=== PATIENT | female | born 1940 | race American Indian/Alaskan Native ===

== ENCOUNTER 2018-04-13 15:11 | Emergency (ER) | payer MEDICARE ==
--- NOTE | 2018-04-13 15:23 | Emergency Department Report ---
HPI - General Time Seen by Provider: 04/13/18 15:17 - HPI HPI: Charge nurse triage The patient is a 77-year-old female presenting with a chief complaint of "seizure-like activity" and right upper extremity weakness. Per EMS they received a call for a seizure-like activity. Upon their arrival the patient was unable to move her right upper extremity or right lower extremity. Family states this began approximately 30 minutes prior to EMS arrival (EMS arrived on scene at 14:40). EMS noted that the patient at one point began shaking both arms. +5-7 seconds but remained responsive throughout the entire event. Upon arrival to the ED the patient was able to move her right lower extremity but still unable to move her right upper extremity Location: [See above] Duration: [See above] Quality: [See above] Severity: [See above] Modifying factors: [see above] Context: [see above] Mode of transportation: [not driving] ED Past Medical Hx - Past Medical History Hx Seizures: Yes Additional medical history: NAUSEA, FIBROID TUMOR - Surgical History Additional Surgical History: REMOVAL OF ONE OVERY(UNSURE OF SIDE) - Family History Family history: no significant - Social History Smoking Status: Never Smoker - Medications Home Medications: Home Medications Medication Instructions Recorded Confirmed Last Taken Type oxyCODONE /ACETAMINOPHEN [Percocet 2 tab PO Q6H PRN #14 tablet 03/31/18 Unknown Rx 5/325 mg] ED Review of Systems ROS: Stated complaint: POSS STROKE Other details as noted in HPI Neurological: weakness Physical Exam - Physical Exam Physical Exam: GENERAL: The patient is well-developed well-nourished female lying on stretcher not appearing to be in acute distress. [] HEENT: Normocephalic. Atraumatic. Extraocular motions are intact. Patient has moist mucous membranes. NECK: Supple. Trachea midline CHEST/LUNGS: Clear to auscultation. There is no respiratory distress noted. HEART/CARDIOVASCULAR: Regular. There is no tachycardia. There is no gallop rub or murmur. ABDOMEN: Abdomen is soft, nontender. Patient has normal bowel sounds. There is no abdominal distention. SKIN: There is no rash. There is no edema. There is no diaphoresis. NEURO: The patient is awake, alert, and oriented. The patient is cooperative. Cranial nerves II through XII grossly intact with the exception of slightly decreased strength in right shoulder shrug (cranial nerve XI). Patient is unable to raise right upper extremity from off of the stretcher. [employer] In[employer] Adjunct are equal bilaterally. Moves both lower extremities. Normal sensation. The patient has normal speech MUSCULOSKELETAL: There is no evidence of acute injury. ED Course - Consultations Consultation #1: 04/13/18 15:37 Tele-Neuro paged 04/13/18 16:[address] Rojas after they had a chance to evaluate the patient. States patient's presentation is completely psychogenic. Does not require admission for this presentation. Should be given outpatient referral for neurologist Consultation #2: 04/13/18 16:31 Case discussed with mental health health consultant-no inpatient criteria ED Medical Decision Making - Lab Data Result diagrams: 04/13/18 15:15 04/13/18 15:15 Laboratory Tests 04/13/18 04/13/18 04/13/18 15:15 15:15 15:15 WBC 7.1 RBC 3.92 Hgb 11.7 Hct 33.8 MCV 86 MCH 30 MCHC 35 H RDW 15.1 Plt Count 563 H Lymph % (Auto) 45.0 H Thomas % (Auto) 10.5 H Eos % (Auto) 5.5 H Baso % (Auto) 0.7 Lymph # 3.2 Thomas # 0.7 Eos # 0.4 Baso # 0.0 Seg Neutrophils % 38.3 L Seg Neutrophils # 2.7 PT 12.7 INR 0.91 APTT 33.7 Thrombin Time 16.7 Sodium 134 L Potassium 3.7 Chloride 96.9 L Carbon Dioxide 27 Anion Gap 14 BUN 10 Creatinine 0.6 L Estimated GFR > 60 BUN/Creatinine Ratio 17 Glucose 114 H Calcium 9.3 Total Creatine Kinase 74 CK-MB (CK-2) 1.3 CK-MB (CK-2) Rel Index 1.7 Troponin T < 0.010 - EKG Data -: EKG Interpreted by De EKG shows normal: sinus rhythm Rate: normal - EKG Data When compared to previous EKG there are: previous EKG unavailable Interpretation: other (no ischemic changes seen) - Radiology Data Radiology results: report reviewed (CT head), image reviewed (CT head) [facility] [address] [place] [address] Cat Scan Report Signed Patient: SVETA BARBER MR#: [id number] : 1940 Acct:[id number] Age/Sex: 77 / F ADM Date: 04/13/18 Loc: ED Attending Dr: Ordering Physician: GELY CERNA MD Date of Service: 04/13/18 Procedure(s): CT head/brain wo con Accession Number(s): [id number] cc: GELY CERNA MD CT scan of head without IV contrast: History: Neurodeficit Findings: Ventricles are normal in size and midline in location. Periventricular area of low attenuation. Moderate volume loss. No evidence of acute ischemia, hemorrhage or mass. No extra-axial fluid collection. Normal visualized sinuses and mastoid air cells. Impression: No acute intracranial abnormality. Small vessel ischemic changes. was informed of the findings at 3:30 PM on 04/13/18. 98N Transcribed By: PTP Dictated By: FRANDY CHIANG MD Electronically Authenticated By: FRANDY CHIANG MD Signed Date/Time: 04/13/181517 DD/ 13 TD/TT: 04/13/181517 - Differential Diagnosis CVA, malingering, Mani's paralysis Critical care attestation.: If time is entered above; I have spent that time in minutes in the direct care of this critically ill patient, excluding procedure time. ED Disposition Clinical Impression: Psychogenic paralysis Disposition: DC-01 TO HOME OR SELFCARE Is pt being admited?: No Does the pt Need Aspirin: No Condition: Stable Instructions: Women and Epilepsy (ED) Additional Instructions: Return to the emergency department immediately should you develop worsening symptoms, fever, inability to tolerate food or liquid or any other concerns. Referrals: [facility] [Outside] - 3-5 Days LARRY ENCISO MD [Staff Physician] - 3-5 Days (Dr. Enciso is a neurologist. Please follow up with him for further evaluation) Time of Disposition: 16:35
[2018-04-13 15:35] LABS: Basophils % (Auto) 0.7 % (0.0-1.8); Eosinophils # (Auto) 0.4 K/mm3 (0.0-0.4); Eosinophils % (Auto) 5.5 % (0.0-4.3); Hematocrit 33.8 % (30.3-42.9); Hemoglobin 11.7 gm/dl (10.1-14.3); Lymphocytes # (Auto) 3.2 K/mm3 (1.2-5.4); Mean Corpuscular HGB Conc 35 % (30-34); Mean Corpuscular Hemoglobin 30 pg (28-32); Mean Corpuscular Volume 86 fl (79-97); Monocytes # (Auto) 0.7 K/mm3 (0.0-0.8); Monocytes % (Auto) 10.5 % (0.0-7.3); Platelet Count 563 K/mm3 (140-440); Red Blood Count 3.92 M/mm3 (3.65-5.03); Red Cell Distribution Width 15.1 % (13.2-15.2)
--- NOTE | 2018-04-13 15:39 | Cat Scan Report ---
CT scan of head without IV contrast: History: Neurodeficit Findings: Ventricles are normal in size and midline in location. Periventricular area of low attenuation. Moderate volume loss. No evidence of acute ischemia, hemorrhage or mass. No extra-axial fluid collection. Normal visualized sinuses and mastoid air cells. Impression: No acute intracranial abnormality. Small vessel ischemic changes. was informed of the findings at 3:30 PM on 04/13/18. 98N
[2018-04-13 15:44] LABS: Creatine Kinase MB 1.3 ng/mL (0.0-4.0); INR 0.91 (0.87-1.13)
[2018-04-13 15:45] LABS: BUN/Creatinine Ratio 17; Blood Urea Nitrogen 10 mg/dL (7-17); Calcium 9.3 mg/dL (8.4-10.2); Hemolysis Index 37; Partial Thromboplastin Time 33.7 Sec. (24.2-36.6); Thrombin Time 16.7 Sec. (15.1-19.6)
[2018-04-13 19:34] VITALS: BP 143/66
== END 2018-04-13 19:27 | disposition home or self-care (01) ==
LOC: ED 15:11
DX: F44.4 Conversion disorder with motor symptom or deficit (principal)
CPT/HCPCS: 36415; 70450; 80048; 82550; 82553; 84484; 85025; 85610; 85670; 85730; 93005; 93010

== ENCOUNTER 2021-06-22 09:45 | Outpatient (CLI) | payer MEDICARE ==
--- NOTE | 2021-06-22 13:17 | Mammography Report ---
DIGITAL SCREENING MAMMOGRAM WITH CAD, 06/22/2021 CLINICAL INFORMATION / INDICATION: Routine screening mammography. TECHNIQUE: Digital bilateral 2D mammography was obtained in the craniocaudal and mediolateral obliqu e projections. This examination was interpreted with the benefit of Computer-Aided Detection analysis . COMPARISON: 06/07/2016 FINDINGS: Breast Density: There are scattered areas of fibroglandular density. No dominant mass, suspicious calcifications, or architectural distortion in either breast. No interval change. IMPRESSION: No mammographic evidence of malignancy. Follow up recommendation: Routine yearly BI-RADS Category 1: Negative. A "normal" or negative report should not discourage follow up or biopsy of a clinically significant f inding. A written summary of these findings will be mailed to the patient. The patient will be entered into a mammography reporting system which will generate a reminder letter for the patient's next appointmen t at the appropriate interval. The [employer] recommends yearly mammograms starting at age 40 and continuing as l oleg as a woman is in good health. Breast MRI is recommended for women with an approximate 20-25% or greater lifetime risk of breast cancer, including women with a strong family history of breast or ova charles cancer or who have been treated for Hodgkin's disease. Signer Name: Meghana Trotter MD Signed: 06/22/2021 1:12 PM Workstation Name: [id number]
== END 2021-06-22 09:46 | disposition home or self-care (01) ==
LOC: MAMMO 09:45
PROVIDERS: ATTEND Internal Medicine
DX: Z12.31 Encounter for screening mammogram for malignant neoplasm of breast (principal); N64.89 Other specified disorders of breast
CPT/HCPCS: 77067